=== PATIENT | male | born 1940 | race Caucasian/White ===

== ENCOUNTER 2017-01-03 17:45 | Inpatient (IN) | payer MEDICARE ==
--- NOTE | 2017-01-03 17:55 | NUR ---
Patient arrived from [facility] via EMS with two drivers, patient apparently had made the statement when staff went to put a gait belt around his waist and he said "Just put it around my neck and get it over with" Patient also was frustrated and angry and told staff to "Get away from me" and he was swinging his arms and if he would have made contact he would have hit someone. Patient can stand with assist, but he is stiff and unsteady with weakness. Patient is confused, he is oriented to himself, but he does not know where he is located. He did admit that he did probably say those things, but denies that he would kill himself and he does contract with me for a no self harm contract. He says he is sad and angry that he is not with his . Patient can answer some questions appropriately.
[2017-01-03 18:13] VITALS: BP 116/67; BMI 22.5
[2017-01-03] MEDS ORDERED: ASCORBIC ACID500 MG PO (18:34)
[2017-01-03] MEDS ORDERED: ACIDOPHILUS LAC1 CAP PO (18:36)
[2017-01-03] MEDS ORDERED: IPRATROPIUM BR42 MCG NASAL (18:38)
[2017-01-03] MEDS ORDERED: CALCIUM 500 +1 EAC3 PO (18:39)
[2017-01-03] MEDS ORDERED: CARBIDOPA-LEVO1 EAC2 PO (18:42)
[2017-01-03] MEDS ORDERED: GLUCOPHAGE500 MG PO (18:43)
[2017-01-03] MEDS ORDERED: VIC-FORTE CAPSUL1 MG PO (18:44)
[2017-01-03] MEDS ORDERED: CELEXA20 MG PO (18:45)
[2017-01-03] MEDS ORDERED: ARICEPT10 MG PO (18:46)
[2017-01-03] MEDS ORDERED: HUMULIN R100 U/ML SC (18:59)
--- NOTE | 2017-01-04 01:05 | NUR ---
B) recieved sitting outside the nurses station in a jean chair, alert and oriented to self, confused, calm and cooperative with staff, I) Administered perscribed medications, oriented to unit, R) Medication compliant, ambulates with assist, P) Continue plan of care, continue to monitor.
[2017-01-04 06:44] LABS: BASOPHILS 0.6 % (0.0-2.0); EOSINOPHILS 2.1 % (0-7); HEMATOCRIT 43.2 % (42.0-54.0); HEMOGLOBIN 14.7 g/dL (13.5-17.5); IMMATURE GRANULOCYTES 0.4 % (0-5); MCH 30.6 pg (26.0-34.0); MCV 89.8 fL (80.0-100.0); MONOCYTES 9.1 % (2-11); NEUTROPHILS 65.8 % (40-80); PLATELET COUNT 173 10x3/uL (130-400); RBC 4.81 10x6/uL (4.20-6.10); RDW 12.8 % (11.5-14.5); WBC 4.7 10x3/uL (4.8-10.8)
[2017-01-04 07:04] LABS: ALKALINE PHOSPHATASE 68 U/L (46-116); ALT (SGPT) 15 U/L (10-68); BILIRUBIN - TOTAL 0.56 mg/dL (0.2-1.3); CALC OSMOLALITY 282 mosm/kg (275-300); CALCIUM 8.6 mg/dL (8.5-10.1); CARBON DIOXIDE 27.1 mmol/L (21.0-32.0); CHLORIDE - SERUM 104 mmol/L (98-107); CHOL - HDL RATIO 4.3 ratio (2.3-4.9); CHOLESTEROL, TOTAL 167 mg/dL (0-200); CREATININE - SERUM 0.9 mg/dL (0.6-1.3); GLUCOSE 154 mg/dL (74-106); HDL CHOLESTEROL 39 mg/dL (32-96); LDL CHOLESTEROL 83 mg/dL (0-100); LDL-HDL RATIO 2.1 ratio (1.5-3.5); POTASSIUM - SERUM 3.6 mmol/L (3.5-5.1); PROTEIN - SERUM 6.1 g/dL (6.4-8.2); SODIUM 140 mmol/L (136-145); THYROID STIMULATING HORMONE 2.48 uIU/mL (0.36-3.74); TRIGLYCERIDE 228 mg/dL (30-200); UREA NITROGEN 15 mg/dL (7-18); eGFR NON AFRICAN AMERICAN 88 mL/min (90-120)
[2017-01-04 08:55] VITALS: BP 138/62
[2017-01-04 10:29] VITALS: Wt 86.9 kg
--- NOTE | 2017-01-04 13:10 | NUR ---
(B)RECEIVED PATIENT LAYING IN BED. ORIENTED TO SELF ONLY. THOUGHT HE WAS IN [place]. POOR INSIGHT INTO THE REASON FOR HOSPITALIZATION. INFORMED PATIENT THE REPORT WAS HE WAS HAVING SUICIDAL THOUGHTS WHICH PATIENT DENIES AND REPLIED "I HAD THOUGHTS MY RAN OFF WITHOUT ME." WHEN ASKED ABOUT THE AGGRESSIVE BEHAVIOR PATIENT CONFIRMS THE AGGRESSION RELATING "GOT AGGRESSIVE BECAUSE THEY TOOK MY AWAY FROM ME." THOUGHT CONTENT REVOLVES AROUND . SITS QUIETLY AND WATCHES OTHERS. (I)ADMINISTER MEDS AND MONITOR COMPLIANCE REORIENT NEEDED.(R)MED COMPLIANT. POOR REORIENTAION DUE TO IMPAIRED ABILITY TO RETAIN INFORMATION. (P)CONTINUE POC AND MAINTAIN FALL PRECAUTIONS.
[2017-01-04 19:30] VITALS: BP 98/60
--- NOTE | 2017-01-05 01:34 | NUR ---
Patient resting in dayroom. Calm and cooperative with medication. Oriented to person. Patient was reoriented to place, time and situation. Continue to monitor, continue plan of care.
[2017-01-05 07:21] LABS: RAPID PLASMA REAGIN Non Reactive (Non Reactive)
[2017-01-05 09:03] VITALS: BP 124/70
--- NOTE | 2017-01-05 11:50 | NUR ---
B.) Alert and oriented to self only, patient resistant and pushing nurse hand away during assessment, frown on face and tight trading manager on arm braclet while nurse trying to scan to check FSBS. I.) Administer medications and monitor compliance, redirect for inappropriate behavior and reorient. Monitor safety. R.) Compliant with medications this am, at this time patient is aggressive, frowning, tight trading manager on nurse hand and clothing when attempted to assess, asked where he was at " across the street at the" ( then mumbles ) yells to nurse "Can't you hear!", pushed patient to dining room table for lunch, patient grabs tray and attmepts to throw it, grab another patients tray, grabbing food off of it and poured out his and another patients boost. Attempts to redirect and speak with patient one on one regarding behavior...patient uncooperative and continues to reach for things, with strong trading manager on tech arm, redirected to day room away from other patients. Remains in jean chair with chair alarm in place. P.) Continue to monitor patient and maintain safety. Continue plan of care.
--- NOTE | 2017-01-05 13:24 | NUR ---
Patient with scanning vision, tremors of left hand, strong child caregiver on chair. Prn Haldo IM given for anxiety.
[2017-01-05 19:30] VITALS: BP 130/84
--- NOTE | 2017-01-05 21:31 | NUR ---
B) Recieved sitting in the day room in a jean chair, alert and oriented to self, calm and quiet, social with staff, B) Administered perscribed medications, I) Medication compliant, quiet and friendly, P) Continue plan of care, continue to monitor.
--- NOTE | 2017-01-06 07:54 | PSY ---
PATIENT NAME:CLAUDIA SMITH MEDICAL RECORD: [id number] : 44 LOCATION:[facility] ADMISSION DATE: 01/03/17 ACCOUNT: [id number] PSYCHIATRIC EVALUATION DATE OF EVALUATION: 01/04/17 Initial Psychiatric Workup IDENTIFYING DATA: This is the first prison admission for this 76-year-old white male. HISTORY OF PRESENT ILLNESS: This patient is a resident of [facility]. He was being assisted with physical therapy gait training at the snf yesterday when he told his therapist to simply put the belt around his neck and "get it over with." The patient had been exhibiting worsening depression evidently for sometime. He is now exhibiting delusional ideation as well. On interview today, the patient thinks that his is having an affair. He is showing fairly rapid deterioration according to history obtained from the . The patient has been arrested at [facility] for less than 3 months. He does have preexisting diagnosis of dementia. Because of deteriorating behavior and worsening cognition, the patient is admitted. PAST MEDICAL HISTORY: Relatively unremarkable. The patient does have a past history of diabetes, for which he takes insulin. The patient also has a previous history of Parkinson's. ALLERGIES: He has no known drug allergies. CURRENT MEDICATIONS: Include vitamin C, lactobacillus acidophilus, vitamin D and calcium supplements, Sinemet 25/100, 1.5 tabs twice a day, Glucophage 500 mg daily, Celexa 20 mg daily, Aricept 10 mg h.s. FAMILY HISTORY: Noncontributory. SOCIAL HISTORY: The patient does not have substance abuse issues. He is a snf resident. His is supportive. MENTAL STATUS: On exam, the patient is fairly pleasant. On exam, mood; however, is anxious. Affect is rather shallow. Speech is low in volume and somewhat terse. Thought content is positive for paranoid delusional ideation. The patient is oriented to person, but not as to place or time. Memory is impaired in all phases. 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 AXIS II: No diagnosis. AXIS III: Parkinson disease, history of diabetes. AXIS IV: Severe. AXIS V: 34. PLAN: 1. The patient is admitted for further medical and psychiatric workup. 2. Daily supportive therapy. 3. We will coordinate with referring agency regarding aftercare. TRANSINT:[id number] Voice Confirmation ID: [id number] DOCUMENT ID: [id number] IFEOMA RÍOS III, MD at 0754 CC: [id number] DICTATION DATE: 01/04/17 104 ASSISTANT MANAGER QUALITY MANAGEMENT: 01/04/17 1133 ADM IN [facility] [address] [place] [address]
[2017-01-06 10:07] VITALS: BP 103/68
[2017-01-06 11:46] LABS: APPEARANCE CLEAR (CLEAR); BILIRUBIN NEGATIVE (NEGATIVE); COLOR YELLOW (YELLOW); GLUCOSE NEGATIVE (NEGATIVE); KETONE NEGATIVE (NEGATIVE); LEUKOCYTE ESTERASE TRACE (NEGATIVE); NITRITE NEGATIVE (NEGATIVE); PROTEIN NEGATIVE (NEGATIVE); SPECIFIC GRAVITY 1.015 (1.005-1.020); UROBILINOGEN NORMAL (NORMAL)
[2017-01-06 11:48] LABS: BACTERIA FEW /hpf (NONE SEEN); CALCIUM OXALATE CRYSTALS 0-5 /hpf (NONE SEEN); EPITHELIAL CELLS 0-5 /hpf (0-5); MUCUS <1+ /lpf (NONE SEEN); RED CELLS - URINE 0-5 /hpf (0-5); WHITE CELLS - URINE 0-5 /hpf (0-5)
--- NOTE | 2017-01-06 14:38 | NUR ---
TREMORS NOTED TO LEFT HAND. PT IS VERY ANXIOUS WITH SCANNING VISION AND POOR EYE CONTACT. ENCOURAGED PT TO COMMUNICATE FEELINGS BUT PT ONLY ANSWERS QUESTIONS. ORIENTED TO PERSON ONLY. REORIENTED FREQUENTLY WITH NO EVIDENCE OF RETAINING. MED COMPLIANT. PTIS A TOTAL ASSIST AND REQUIRES TWO STAFF MEMBERS TO ASSIST WITH ADLS AND INCONTINENT CARE. NO AGGRESSION NOTED. DENIES SI BUT SIGNS OF DEPRESSION PRESENT. WILL CONTINUE TO MONITOR AND CONTINUE WITH PLAN OF CARE. FALL PRECAUTIONS MAINTAINED.
[2017-01-06 19:30] VITALS: BP 99/56
--- NOTE | 2017-01-06 20:07 | NUR ---
RECEIVED IN DAYROOM. SETTING IN RECLINING CHAIR. CONFUSED. ORIENTED TO SELF ONLY. CALM AND COOPERATIVE WITH CARE AND ASSESSMENT. NO SIGNS OF AGGRESSION. TWO PERSON TRANSFERE TO WHEELCHAIR. REDIRECT AND REORIENT NEEDED. CONTINUES TO SET QUIETLY IN RECLINER. CONTINUE PLAN OF CARE
[2017-01-07 09:09] LABS: VITAMIN D 25 HYDROXY 23.3 ng/mL (30.0-100.0)
[2017-01-07 10:31] VITALS: BP 117/75
--- NOTE | 2017-01-07 17:02 | NUR ---
RECEIVED THIS AM SITTING IN RECLINER IN HALLWAY AT NURSES STATION.SITS VERY QUIETLY OBSERVING PEERS AND STAFF.COMPLIANT WITH MEDS.COOPERATIVE WITH STAFF.IS TOTAL CARE,REQUIRES ASSIST OF 2 TO PROVIDE ADL'S.WILL CONTINUE WITH PLAN OF CARE,MONITOR FOR CHANGES AND SAFETY.
[2017-01-07 20:00] VITALS: BP 113/70
--- NOTE | 2017-01-07 20:05 | NUR ---
RECEIVED IN DAYROOM SETTING IN RECLINER WATCHING TV AT TIMES. ISOLATED FROM PEERS. NOT SOCIALIZING. NO SIGNS OF AGGRESSION. ORIENTED TO SELF ONLY. REDIRECT AND REORIENT NEEDED. CONTINUES TO REST IN RECLINER WITH EYES OPEN. CONTINUE PLAN OF CARE
[2017-01-08 08:28] VITALS: BP 116/72
--- NOTE | 2017-01-08 10:27 | NUR ---
Nutrition Follow Up: Chart reviewed. Pt is eating 71% meal avg on a Diabetic Cardiac diet with Farner Thick Liquids. +BM 01/04/17. Wt gain of 26# since admit?? Labs noted - Glucose elevated. Meds noted including Humulin, Metformin. Pt with good po intake at this time. Rec continue current diet. Will continue to provide selective menus and honor food preferences. RD following.
--- NOTE | 2017-01-08 13:04 | NUR ---
B.) Alert and oriented to self has no insight to place and reason for hospitalization. Smiles and is very pleasant and cooperative with care. I.) Administer medications, redirect and reorient as need. Encourage group participation and monitor safety. Assist patient with activities and meals. R.) Compliant with medications, calm and cooperative with unit milieu with no aggression. Has attempted socialization with others, smiles often. Patient able to feed self meals with no tremors noted to left hand. Chair alarm in place and functioning properly. P.) Continue plan of care.
[2017-01-08 19:31] VITALS: BP 116/79
--- NOTE | 2017-01-08 23:25 | NUR ---
PATIENT IN CHAIR IN DAYROOM, ORIENTED TO SELF ONLY. THOUGHT HE WAS IN A "MOVIE HOUSE". PATIENT REORIENTED, KEPT ASKING TO SEE HIS , WHOM HE THOUGHT HE COULD SEE OUTSIDE. PATIENT KEPT TRYING TO STAND WITHOUT ASSIST, WHEN NURSE DEVON WENT TO ASSIST HIM, PATIENT PUSHED HIM. NURSE DEVON REDIRECTED PATIENT, AFTERWARDS PATIENT WAS CALM AND COOPERATIVE. CONTINUE TO MONITOR, CONTINUE PLAN OF CARE.
[2017-01-09 08:02] VITALS: BP 124/84
--- NOTE | 2017-01-09 14:28 | NUR ---
RECEIVED SITTING IN RECLINER IN DAYROOM.ALERT,CALM,AND COOPERATIVE.IS ORIENTED TO SELF ONLY.TALKS OFTEN ABOUT HIS BEING A TAG MARKER,BUT IS NOT HEARD SPEAKING OF OTHER THINGS.HAS NO INSITE TO WHERE HE IS OR WHY.WALKS WITH WALKER AND ASSIST OF ONE WITH UNSTEADY GAIT,AT TIMES WILL PUT ONE FOOT IN FRONT OF OTHER FOOT,TOUCHING TOE OF OPPOSITE FOOT.WILL CONTINUE WITH PLAN OF CARE,MONITOR FOR CHANGES AND SAFETY.
--- NOTE | 2017-01-09 21:55 | NUR ---
PATIENT IN DAYROOM IN RECLINER HOLDING ONE SHOE, HAVING LOOSE ASSOCIATIONS, UNABLE TO FOLLOW QUESTIONS. PATIENT WAS REORIENTED. NON-AGRESSIVE, BUT TEARFUL. PATIENT WAS REDIRECTED. COOPERATIVE WITH MEDICATION. CONTINUE TO MONITOR, CONTINUE PLAN OF CARE.
[2017-01-10 09:05] VITALS: BP 125/78
--- NOTE | 2017-01-10 12:47 | NUR ---
(B)RECEIVED PATIENT SITTING IN A CHAIR AT THE NURSE'S STATION. ORIENTED TO SELF AND HOSPITAL. INTERACTS WHEN APPROACHED. PREOCCUPIED WITH THOUGHTS OF AND TALKS OF HER FREQUENTLY. (I)ADMINISTER MEDS AND MONTIOR COMPLIANCE. REORIENT WITH REALITY BASED INFORMATION WHEN SPEAKING OF AND BELIEVING SHE IS PRESENT. (R)MED COMPLIANT. POOR REORIENTAION AND REDIRECTION DUE TO IMPAIRED ABILITY TO SEPARATE REALITY FROM FANTASY. COOPERATIVE WITH UNIT MIL. (P)CONTINUE POC AND MAINTAIN FALL PRECAUTIONS.
--- NOTE | 2017-01-10 13:22 | PN ---
PATIENT:CLAUDIA SMITH MEDICAL RECORD: [id number] LOCATION:[facility] ADMISSION DATE: 01/03/17 PROGRESS NOTE DATE OF SERVICE: 01/09/2017 SUBJECTIVE: The patient's case was discussed with staff. He has no new complaint. OBJECTIVE: The patient is in good behavioral control with limited insight about his condition. He tolerates his medicines well. ASSESSMENT: No change in diagnoses. PLAN: Current medicines and therapies have been reviewed and will be maintained. Long-term prognosis is guarded. The patient has no thoughts of harming himself today. TRANSINT:[id number] Voice Confirmation ID: [id number] DOCUMENT ID: [id number] GARLAND SPRAGUE MD at 1322 CC: [id number] DICTATION DATE: 01/09/17 165 LEAD JAVASCRIPT DEVELOPER: 01/09/172051 ADM IN [place] [id number] [place] [id number]
[2017-01-10 19:30] VITALS: BP 107/71
--- NOTE | 2017-01-11 02:41 | NUR ---
B) Recieved sitting in a jean chair in the day room, alert and oriented to self, calm and quiet, watching TV, I) Administered perscribed medications, redirected as needed, oriented to unit, R) Medication compliant, cooperative with staff, transfers with assist, P) Continue plan of care, continue to monitor.
[2017-01-11 08:18] VITALS: BP 120/77
--- NOTE | 2017-01-11 08:18 | PN ---
PATIENT:CLAUDIA SMITH MEDICAL RECORD: [id number] LOCATION:[facility] ADMISSION DATE: 01/03/17 PROGRESS NOTE DATE OF SERVICE: 01/10/2017 SUBJECTIVE: The patient's case was discussed with staff. He has no new complaint. OBJECTIVE: The patient is in good behavioral control with limited insight about his condition. He tolerates his medicines well. ASSESSMENT: No change in diagnoses. PLAN: Supportive and educational interventions were made. Long-term prognosis is guarded. TRANSINT:[id number] Voice Confirmation ID: [id number] DOCUMENT ID: [id number] GARLAND SPRAGUE MD at 0818 CC: [id number] DICTATION DATE: 01/10/17 1319 EXHAUSTER ENGINEER: 01/10/17 1655 ADM IN [place] [id number] [place] [address]
--- NOTE | 2017-01-11 10:00 | NUR ---
B.) Alert and oriented to name and place, states reason for being here as " a little of everything I think concerning about hurting someone." Denies any suicidal ideations, contracted for safety. I.) Administer medications and monitor compliance. Redirect for any inappropriate behavior. Monitor for safety. R.) Compliant with medications, pleasant and cooperative. Smiling and social today. Contracted for safety with no suicidal ideations. No aggression P.) Plan for discharge today back to [facility].
[2017-01-11] MEDS ORDERED: SEROQUEL25 MG PO (11:15)
[2017-01-11] MEDS ORDERED: COMTAN200 MG PO (11:15)
[2017-01-11] MEDS ORDERED: SINEMET 25-1001 EACH PO (11:15)
[2017-01-11] MEDS ORDERED: COLACE100 MG PO (11:16)
[2017-01-11] MEDS ORDERED: GLUCOPHAGE500 MG PO (11:17)
[2017-01-11] MEDS ORDERED: VITAMIN D5000 UNIT PO (11:18)
--- NOTE | 2017-01-11 12:48 | NUR ---
Contacted patient spouse Neena Craig, informed that patient will be returning to [facility] today, facility will pick him up for transport at 1400. Verbalized understanding with no further concerns voiced.
--- NOTE | 2017-01-11 14:00 | NUR ---
Discharge back to [facility], no incident. Belongings released to patient. Wedding band placed ayleen on per patient.
--- NOTE | 2017-01-15 10:22 | PN ---
PATIENT:CLAUDIA SMITH MEDICAL RECORD: [id number] LOCATION:[facility] ADMISSION DATE: 01/03/17 PROGRESS NOTE DATE OF SERVICE: 01/07/2017 SUBJECTIVE: No new complaint noted. OBJECTIVE: The patient was aggressive with staff over the weekend before visit with his . He had become aggressive with both staff and with other patients and had to receive a p.r.n. On exam today, the patient's mood is more or less euthymic. Affect is constricted. Speech is somewhat terse. Content of thought is negative for overt psychosis. Sensorium shows no change. ASSESSMENT: No change in diagnosis. PLAN: 1. Adjust medications as indicated, control aggressive behavior. 2. Continue supportive therapy. TRANSINT:[id number] Voice Confirmation ID: [id number] DOCUMENT ID: [id number] IFEOMA RÍOS III, MD at 1022 CC: [id number] DICTATION DATE: 01/07/17 1121 BED SPRING MAKER: 01/07/17 1218 DIS IN 01/11/17 [place] [id number] [place] [address]
--- NOTE | 2017-01-16 06:46 | DS ---
PATIENT:CLAUDIA SMITH :44 MEDICAL RECORD: [id number] DISCHARGE SUMMARY ADMISSION DATE: 01/03/17 DISCHARGE DATE: 01/11/17 DATE OF ADMISSION: 01/03/2017 DATE OF DISCHARGE: 01/11/2017 HISTORY OF PRESENT ILLNESS: A 76-year-old white male who is a resident of [facility]. The patient had been exhibiting suicidal ideation and worsening dementia. He had exhibited progressive depression for some time and also some paranoid delusional ideation. For further details, please see previously dictated history. COURSE IN THE HOSPITAL: The patient was seen in consultation by Dr. Zhong. He had multiple medical problems including Parkinson disease, type 2 diabetes, hyperlipidemia, hypertension, osteoarthritis and allergic rhinitis. From a medication standpoint, the patient was treated with oral agents for his diabetes including Glucophage. He was also kept on p.r.n. sliding scale insulin. The patient was also maintained on routine doses of Comtan for his Parkinson disease as well as Sinemet. Other nonpsychiatric medications included Floranex and vitamin C supplements. The patient was treated with Seroquel 25 mg b.i.d. for his delusional ideation. He was also maintained on Celexa 20 mg daily and Aricept 10 mg at bedtime. By the time of discharge, the patient was stable enough to return to the [facility] environment. 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 AXIS II: No diagnosis. AXIS III: Parkinson disease and type 2 diabetes. AXIS IV: Moderate. AXIS V: 38. PLAN: 1. The patient is discharged on current medication. 2. Diet and activities as tolerated. 3. Follow up through primary care physician. TRANSINT:[id number] Voice Confirmation ID: [id number] DOCUMENT ID: [id number] IFEOMA RÍOS III, MD at 0646 CC: [id number] DICTATION DATE: 01/15/17 1114 PSYCHIATRIC SOCIAL WORKER SUPERVISOR: 01/16/17 0126 DIS IN 01/11/[address] [address]
== END 2017-01-11 14:00 | DRG 57 ==
LOC: D.PSYCH 17:45
PROVIDERS: ADMIT Psychiatry & Neurology Psychiatry
DX: G30.9 Alzheimer's disease, unspecified (principal); F02.81 Dementia in other diseases classified elsewhere, unspecified severity, with behavioral disturbance; R45.851 Suicidal ideations; G20 Parkinson's disease; F32.9 Major depressive disorder, single episode, unspecified; E55.9 Vitamin D deficiency, unspecified; E11.9 Type 2 diabetes mellitus without complications; E78.5 Hyperlipidemia, unspecified; I10 Essential (primary) hypertension; L85.3 Xerosis cutis; R26.81 Unsteadiness on feet; Z91.81 History of falling; H26.9 Unspecified cataract; J30.9 Allergic rhinitis, unspecified; R32 Unspecified urinary incontinence

== ENCOUNTER 2017-01-31 09:22 | Inpatient (IN) | payer MEDICARE ==
[~2017-01-31] VITALS: Ht 182.9 cm; Wt 85.1 kg
[~2017-01-31 09:22] MED LIST: ACIDOPHILUS LAC1 CAP PO; ARICEPT10 MG PO; ASCORBIC ACID500 MG PO; CALCIUM 500 +1 EAC3 PO; CARBIDOPA-LEVO1 EAC2 PO; CELEXA20 MG PO; COLACE100 MG PO; COMTAN200 MG PO; GLUCOPHAGE500 MG PO; HUMULIN R100 U/ML SC; IPRATROPIUM BR42 MCG NASAL; SEROQUEL25 MG PO; SINEMET 25-1001 EACH PO; VIC-FORTE CAPSUL1 MG PO; VITAMIN D5000 UNIT PO
[2017-01-31 10:00] VITALS: BP 121/87
[2017-01-31] MEDS ORDERED: ACETAMINOPHEN325 MG PO (14:27)
[2017-01-31] MEDS ORDERED: ATIVAN0.5 MG PO (14:35)
--- NOTE | 2017-01-31 14:53 | NUR ---
PT WAS ADMITTED FROM ER AFTER BEING BROUGHT TO THE HOSPITAL FROM [facility]. IT WAS REPORTED THAT THE PT HAD BECOME SUICIDAL AND ASKING STAFF TO KILL HIM. IT WAS REPORTED THAT HE SAID, "I DON'T WANT TO LIVE LIKE THIS ANYMORE". SPOUSE CALLED AND VERBAL CONSENT GIVEN FOR PT TO BE ADMITTED TO [facility]. PT IS AGREEABLE TO BEING ADMITTED. FULL CODE NOTED. PT IS ORIENTED TO PERSON ONLY. REDIRECTION DONE NEEDED. NO AGGRESSION NOTED. FALL PRECAUTIONS INITIATED. WILL CONTINUE TO MONITOR.
[2017-01-31 15:40] LABS: BASOPHILS 0.3 % (0.0-2.0); EOSINOPHILS 0.5 % (0-7); HEMATOCRIT 46.5 % (42.0-54.0); IMMATURE GRANULOCYTES 0.3 % (0-5); LYMPHOCYTES 13.9 % (15-50); MCH 30.7 pg (26.0-34.0); MCHC 34.4 g/dL (31.0-37.0); MCV 89.1 fL (80.0-100.0); MONOCYTES 7.1 % (2-11); NEUTROPHILS 77.9 % (40-80); PLATELET COUNT 204 10x3/uL (130-400); RBC 5.22 10x6/uL (4.20-6.10); RDW 12.9 % (11.5-14.5); WBC 7.9 10x3/uL (4.8-10.8)
[2017-01-31 16:02] LABS: HEMOGLOBIN A1C 6.5 % (4.8-6.0)
[2017-01-31 16:16] LABS: ALBUMIN 3.6 g/dL (3.4-5.0); ALKALINE PHOSPHATASE 90 U/L (46-116); ALT (SGPT) 53 U/L (10-68); CALC OSMOLALITY 288 mosm/kg (275-300); CALCIUM 9.2 mg/dL (8.5-10.1); CARBON DIOXIDE 29.3 mmol/L (21.0-32.0); CHLORIDE - SERUM 104 mmol/L (98-107); CHOL - HDL RATIO 4.8 ratio (2.3-4.9); CHOLESTEROL, TOTAL 226 mg/dL (0-200); GLUCOSE 188 mg/dL (74-106); HDL CHOLESTEROL 47 mg/dL (32-96); LDL CHOLESTEROL 150 mg/dL (0-100); LDL-HDL RATIO 3.2 ratio (1.5-3.5); POTASSIUM - SERUM 4.1 mmol/L (3.5-5.1); PROTEIN - SERUM 7.1 g/dL (6.4-8.2); SODIUM 142 mmol/L (136-145); THYROID STIMULATING HORMONE 2.02 uIU/mL (0.36-3.74); TRIGLYCERIDE 147 mg/dL (30-200); UREA NITROGEN 16 mg/dL (7-18); eGFR NON AFRICAN AMERICAN 78 mL/min (90-120)
[2017-01-31 16:37] VITALS: BP 121/87
[2017-01-31 20:25] VITALS: BP 121/73
[2017-02-01 06:17] LABS: RAPID PLASMA REAGIN Non Reactive (Non Reactive)
[2017-02-01 08:00] VITALS: BP 164/70
[2017-02-01 09:18] LABS: VITAMIN D 25 HYDROXY 33.9 ng/mL (30.0-100.0)
[2017-02-01 10:20] LABS: FOLATE (FOLIC ACID) - SERUM 13.7 ng/mL (>3.0)
[2017-02-01 11:08] LABS: APPEARANCE HAZY (CLEAR); BILIRUBIN NEGATIVE (NEGATIVE); COLOR YELLOW (YELLOW); GLUCOSE 50 mg/dL (NEGATIVE); KETONE NEGATIVE (NEGATIVE); LEUKOCYTE ESTERASE TRACE (NEGATIVE); NITRITE NEGATIVE (NEGATIVE); PROTEIN TRACE mg/dL (NEGATIVE); UROBILINOGEN NORMAL (NORMAL)
[2017-02-01 11:09] LABS: BACTERIA FEW /hpf (NONE SEEN); EPITHELIAL CELLS OCC /hpf (0-5); RED CELLS - URINE 0-5 /hpf (0-5); WHITE CELLS - URINE OCC /hpf (0-5)
[2017-02-01 14:45] VITALS: Ht 182.9 cm; Wt 85.1 kg
--- NOTE | 2017-02-01 16:06 | NUR ---
B) PATIENT GETTING AGITATED AND ANXIOUS, HE REFUSED HIS PO ATIVAN. PATIENT SLUMPING OVER IN CHAIR, STAFF ATTEMPTED TO HELP HIM AND HE IS TRYING TO GRAB AT THEM AND SWING AT THEM. PATIENT IS ABLE TO STAND AT TIMES WITH ASSIST AT OTHER TIMES HE IS WEIGHT. HE DID AMBULATE IN AM WITH PT. I) PROVIDED ATIVAN 0.5 MG IM IN RIGHT DELTOID. R) PATIENT REFUSED TO HAVE FSBS TAKEN, HE IS IRRITABLE AND HE IS SAYING NUMBERS AND NONSENSICAL, DID GRAB ONTO MY JACKET AND DIDN'T LET GO UNTIL STAFF HAD TO ASSIST HIS HANDS OFF. P) CONTINUE PLAN OF CARE.
--- NOTE | 2017-02-01 16:21 | NUR ---
Patient has refused his 1500 ativan, will provide 0.5 mg IM ATIVAN
[2017-02-01 19:30] VITALS: BP 97/66
--- NOTE | 2017-02-01 23:33 | NUR ---
Patient in recliner in dayroom sleeping. Patient denies suicidal or thoughts of self harm at this time. Complaint with medication. Continue to monitor, continue plan of care.
[2017-02-02 07:53] VITALS: BP 117/78
--- NOTE | 2017-02-02 14:34 | NUR ---
(B)RECEIVED PATIENT SITTING IN A CHAIR AT THE NURSES STATION. ORIENTED TO SELF, PLACE AND DAY. UNABLE TO EXPRESS THE REASON FOR HOSPITALIZATION STATING "I REALLY GOT TO INVOLVED WITH" PAUSED AND COULD NOT COMPLETE THOUGHT. MUMBLES TO SELF. VISUAL HALLUCINATIONS AEB REACHING DOWN TO FLOOR IF PICKING SOMETHING UP. LAUGHS TO SELF IF HEARING SOMETHING FUNNY. CALM AND COOPERATIVE HOWEVER HAS DIFFICULTY COMPREHENDING AND PROCESSING CAUSING DIFFICULTY FOLLOWING INSTRUCTIONS. (I)ADMINISTER MEDS AND MONITOR COMPLIANCE. REORIENT NEEDED. (R)MED COMPLIANT. POOR REORIENTATION DUE TO IMPAIRED ABILTY TO COMPREHEND, PROCESS AND MAINTAIN FALL PRECAUTIONS. (P)CONTINUE POC AND MAINTAIN FALL PRECAUTIONS.
[2017-02-02 19:30] VITALS: BP 122/75
--- NOTE | 2017-02-03 03:35 | NUR ---
Patient sleeping in dayroom. Has a hard time communicating, speaking very slow in response to conversation or direction. Patient stays slouched in chair. Will not participate in conversation. compliant with medication. No suicidal ideation, or self harm at this time. continue to monitor, continue plan of care.
[2017-02-03 10:16] VITALS: BP 116/61
--- NOTE | 2017-02-03 19:23 | NUR ---
ORIENTEDTO SELF AND PLACE.STATED "IM AT [facility] [employer]' THEN CORRECTED HIMSELF.KNOWS HE IS IN HOSPITAL BUT DOES NOT KNOW WHY.IS COMPLIANT WITH MEDS ,QUITE AND DOES NOT SOCIALIZE TODAY WITH PEERS.HAS TO BE REMINED REPEATEDLY TO NOT GET OUT OF CHAIR DUE TO UNSTEADY GAIT.WILL CONTINUE WITH PLAN OF CARE,MONITOR FOR CHANGES AND SAFETY.
[2017-02-03 19:30] VITALS: BP 127/79
--- NOTE | 2017-02-03 21:05 | NUR ---
RECEIVED IN DAYROOM. SITTING AT TABLE WITH STAFF. MOVING PAPERS AROUND. CONFUSED. NO THOUGHT OF SELF HARM STATED. CALM AND COOPERATIVE WITH CARE AND ASSESSMENT. ENCOURAGE TO EXPRESS NEEDS. PM MEDS GIVEN ORDERED. CONTINUES TO SIT AT TABLE. CONTINUE PLAN OF CARE
--- NOTE | 2017-02-04 10:26 | PSY ---
PATIENT NAME:CLAUDIA DOMINGUEZ MEDICAL RECORD: [id number] : 44 LOCATION:[facility] ADMISSION DATE: 01/31/17 ACCOUNT: [id number] PSYCHIATRIC EVALUATION DATE OF EVALUATION: 01/31/17 IDENTIFYING DATA: This is the second recent [facility] admission for this 76-year-old white male. HISTORY OF PRESENT ILLNESS: This patient was just admitted to [facility] between January 03 and January 11 of this year. At that time, he had made suicidal statements to a physical therapist. He had also been exhibiting delusional ideation. He thought that his was having an affair with someone. He had continued to show rapid deterioration in terms of his thought processes and his intellectual abilities including memory and judgment and perception. He was treated over the course of an approximately 1 week with combination of Seroquel 25 mg twice a day, Celexa 20 mg daily and Aricept 10 mg daily. The patient did quite well on this regimen of treatment and was discharged back to the [facility] in stable condition. However, today [facility] notified us that the patient had again made suicidal statements. In order to ensure patient's safety the patient was again transported to [facility]. PAST MEDICAL HISTORY: The patient has a history of Parkinson's disease as well as type 2 diabetes. He does have gait impairment. FAMILY HISTORY: Noncontributory. ALLERGIES: None listed. SOCIAL HISTORY: The patient is , his is supportive. He is a [facility] resident. He does not have substance abuse issues. MEDICATION: At the time of discharge back to the [facility] included the above-mentioned Seroquel, Aricept and Celexa as well as Floranex, vitamin C supplements, Glucophage and Comtan for Parkinson disease and also Sinemet. MENTAL STATUS: On exam, the patient responds fairly well to the examiner. He is quite confused. He cannot recall why he has been sent to the hospital and does not know when he actually got here. He asked the examiner "Am I sick." His mood is fairly pleasant and euthymic. Affect is reasonably bland. Speech shows a great deal of latency. Content of thought at the time of examination was negative for suicidal ideation. The patient continues to show some moderate delusional ideation. On sensorium testing, the patient is oriented only to person. He shows impairment for remote, intermediate, and short-term recall as well as concentration. Insight and judgment are very poor. 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 AXIS II: No diagnosis. AXIS III: Parkinson disease and type 2 diabetes. AXIS IV: Severe. AXIS V: 36. PLAN: 1. The patient is admitted for further evaluation from a psychiatric and medical standpoint. 2. Daily supportive therapy. 3. We will coordinate with referring agency regarding aftercare. TRANSINT:[id number] Voice Confirmation ID: [id number] DOCUMENT ID: [id number] IFEOMA RÍOS III, MD at 1026 CC: [id number] DICTATION DATE: 01/31/17 1042 MANAGER NET: 01/31/17 1144 ADM IN [place] [id number] [place] [id number]
[2017-02-04 11:16] VITALS: BP 116/74
--- NOTE | 2017-02-04 14:16 | PN ---
PATIENT:CLAUDIA DOMINGUEZ MEDICAL RECORD: [id number] LOCATION:[facility] ADMISSION DATE: 01/31/17 PROGRESS NOTE DATE OF SERVICE: 02/01/2017 SUBJECTIVE: The patient's case was discussed with staff. He has no new complaint. OBJECTIVE: The patient is severely impaired cognitively. He makes no statements about wanting to kill himself today. He has very limited insight about his situation. ASSESSMENT: No change in diagnoses. PLAN: Current medicines have been reviewed and will be maintained. Long-term prognosis is guarded. TRANSINT:[id number] Voice Confirmation ID: [id number] DOCUMENT ID: [id number] GARLAND SPRAGUE MD at 1416 CC: [id number] DICTATION DATE: 02/01/17 1503 STOVE FITTER: 02/01/172037 ADM IN [place] [id number] [place] [address]
--- NOTE | 2017-02-04 18:18 | NUR ---
RECEIVED PATIENT THIS AM, ALERT AND ORIENTED TO SELF ONLY, STATES HE IS " AT THE LABORATORY TO LOOK AT SOMEONES FOOT." NO EVIDENCE OF REORIENTATION. DIFFICULTY WITH DIRECTIONS AND REDIRECTION. PATIENT SITS IN CHAIR AND LEANS FORMWARD, ASSISTED TO YAMILETH CHAIR, PATIENT THEN ATTEMPTS TO BECOME COMBATIVE WITH STAFF, ABLE TO POSITION WITH CHAIR ALARM IN PLACE. ROUTINE KLONIPIN WAS SCHEDULED AT THAT TIME. MEDICATION EFFECTIVE, SAT QUIETLY WITHOUT ATTMEPTS OF COMBATIVENESS. ASSISTED WITH SUPPER. SAFETY MAINTAINED. CONTINUE WITH PLAN OF CARE.
[2017-02-04 19:42] VITALS: BP 120/72
--- NOTE | 2017-02-04 21:31 | PN ---
PATIENT:CLAUDIA DOMINGUEZ MEDICAL RECORD: [id number] LOCATION:[facility] ADMISSION DATE: 01/31/17 PROGRESS NOTE DATE OF SERVICE: 02/04/2017 SUBJECTIVE: No new complaint. OBJECTIVE: The patient continues to have episodes of combativeness during activities of daily living when assistance is being provided. He also continues to give evidence of some visual hallucinosis. He occasionally attempts to pick objects off the floor when nothing is actually there. He has leaned over far enough to almost fall out of his wheelchair, but staff has been present on each occasion to prevent this from happening and this may be pertinent in the reports we received from the [facility]. On exam, the patient is moderately responsive. His mood is euthymic. Affect is very constricted. Speech is terse. Content of thought as noted above. Sensorium shows no change. ASSESSMENT: No change in diagnosis. PLAN: 1. For now, we will continue current medication regimen. 2. Continue supportive therapy. TRANSINT:[id number] Voice Confirmation ID: [id number] DOCUMENT ID: [id number] IFEOMA RÍOS III, MD at 2131 CC: [id number] DICTATION DATE: 02/04/17 112 REROLLER HAND: 02/04/172045 ADM IN [place] [id number] [place] [address]
--- NOTE | 2017-02-05 02:26 | NUR ---
B) Recieved sitting in a chair in the day room, alert and oriented to self, no SI this shift, calm and cooperative this shift, I) Administered perscribed medications, redirected as needed, R) Medication compliant, resting now quietly, P) Continue plan of care, continue to monitor.
[2017-02-05 08:00] VITALS: BP 137/71
--- NOTE | 2017-02-05 13:06 | NUR ---
Nutrition Follow Up: Chart reviewed. Pt is eating 60% meal avg on a diabetic mechanical soft diet with nectar thick liquids. +BM 02/04/17. Labs noted. Meds noted including Metformin, Humulin. Pt with fair po intake at this time. Rec continue current diet. RD following.
--- NOTE | 2017-02-05 15:50 | NUR ---
(B)RECEIVED PATIENT SITTING IN A CHAIR AT THE NURSES STATION. ORIENTED TO SELF ONLY. POOR INSIGHT INTO THE REASON FOR HOSPITALIZATION. SOCIALLY WITHDRAWN. CALM AND COOPERATIVE. (I)ADMINISTER MEDS AND MONITOR COMPLIANCE. REORIENT NEEDED. (R)MED COMPLIANT. POOR REORIENTATION DUE TO IMPAIRED ABILITY TO RETAIN INFORMATION. COOPERATIVE WITH UNIT MILEU. (P)CONTINUE POC AND MAINTAIN FALL PRECAUTIONS.
--- NOTE | 2017-02-05 19:50 | NUR ---
RECEIVED IN DAYROOM. SITTING IN RECLINING CHAIR WATCHING TV. NOT SOCIALIZING WITH PEERS. NO SUICIALE STATEMENTS MADE THIS PM. NOT TRYING TO FALL OUT OF CHAIR. ENCOURAGE TO EXPRESS NEEDS. CONTINUE PLAN OF CARE
[2017-02-05 20:13] VITALS: BP 109/49
--- NOTE | 2017-02-05 22:00 | NUR ---
RESISTANT TO CARE. SQUEEZING STAFFS HANDS/ARMS. ENCOURAGE MED COMPLIANCE. REFUSES TO TAKE PM MEDICATIONS. REDIRECT AND REORIENT NEEDED.
[2017-02-06 09:50] VITALS: BP 122/75
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
--- NOTE | 2017-02-06 11:30 | NUR ---
Pt. refused FSBS x three attempts.
--- NOTE | 2017-02-06 16:35 | NUR ---
B) Sitting in recliner, resting quietly, eyes closed, arouses to verbal stimuli. Denies pain, I) Admin meds as ordered, provide group activity as directed. R) Uncookperative with meds as times, often required multiple attempts before pt agrees to take meds. P) Cont plan of care including meds and group therapy until discharge home.
[2017-02-06 19:29] VITALS: BP 98/61
--- NOTE | 2017-02-07 00:33 | NUR ---
PATIENT IN BED ASLEEP, WAKES EASILY, COMPLIANT WITH MEDICATION. UNABLE TO UNDERSTAND WHAT HE IS SAYING, SOMEWHAT LETHARGIC. ORIENTED TO SELF, BUT UNABLE TO ASSESS, PLACE, TIME AND SITUATION. PATIENTS SPEECH IS GARBLED. PATIENT REORIENTED TO PLACE, TIME AND SITUATION. BED LOW, BED RAILS UP X2, CONTINUE TO MONITOR CONTINUE PLAN OF CARE.
[2017-02-07 08:30] VITALS: BP 107/69
--- NOTE | 2017-02-07 10:46 | PN ---
PATIENT:CLAUDIA DOMINGUEZ MEDICAL RECORD: [id number] LOCATION:[facility] ADMISSION DATE: 01/31/17 PROGRESS NOTE DATE OF SERVICE: 02/06/2017 SUBJECTIVE: The patient states that he needs to be protected because Satan has caused the people working here to try to kill him. OBJECTIVE: The patient is exhibiting worsening agitation and obvious overt psychotic symptoms. He continues to have apparent visual hallucinations. He has extensive paranoid and jew delusions that are evident in the speech. Mood during the interview is anxious. Affect is shallow and brittle. Sensorium is unchanged. ASSESSMENT: No change in diagnosis. PLAN: 1. We will discontinue Risperdal and begin Zyprexa 2.5 mg daily. 2. Continue other medications. 3. Continue close observation and supportive therapy. TRANSINT:[id number] Voice Confirmation ID: [id number] DOCUMENT ID: [id number] IFEOMA RÍOS III, MD at 1046 CC: [id number] DICTATION DATE: 02/06/17 1141 GENERAL DUTY NURSE: 02/06/17 1704 ADM IN [facility] [address] [place] [address]
--- NOTE | 2017-02-07 15:45 | NUR ---
PATIENT IS DROWSY. ATIVAN PO HELD DUE TO SEDATED STATE.
--- NOTE | 2017-02-07 16:11 | NUR ---
(B)RECEIVED PATIENT LAYING IN BED. DRESSED AND ASSISTED TO CHAIR. ORIENTED TO SELF ONLY. SMILES AT STAFF WHEN TALKING TO HIM. ANSWERS ARE NOT CONGRUENT WITH QUESTIONS. SLEEPING ON AND OFF TODAY. MUMBLES TO SELF. DROWSEY TODAY BUT AROUSES FOR SHORT PERIODS OF TIME. STOOD WITH PHYSICAL THERAPY TODAY. (I)ADMINSITER MEDS AND MONITOR COMPLIANCE. REORIENT NEEDED. (R)MED COMPLIANT. POOR REORIENTATION. DOES NOT APPEAR TO COMPREHEND OR PROCESS INFORMATION. REMAINS SOCIALLY WITHDRAWN. COOPERATIVE WITH REQUEST. (P)CONTINUE POC AND MAINTAIN FALL PRECAUTIONS.
[2017-02-07 21:00] VITALS: BP 127/69
--- NOTE | 2017-02-08 04:01 | NUR ---
PATIENT IN DAYROOM, DROOLING ON TABLE, LETHARGIC UNABLE TO SIT UP. MUMBLES UNABLE TO UNDERSTAND. WITHHELD ATIVAN. CONTINUE TO MONITOR
--- NOTE | 2017-02-08 06:28 | PN ---
PATIENT:CLAUDIA DOMINGUEZ MEDICAL RECORD: [id number] LOCATION:[facility] ADMISSION DATE: 01/31/17 PROGRESS NOTE DATE OF SERVICE: 02/07/2017 SUBJECTIVESUBJECTIVE: The patient does not offer a new complaint. OBJECTIVE: The patient continues to show episodic combativeness in the afternoons. During the morning, he is better. Overall, moderate improvement. He is tolerating medication change well. On exam, mood is for the most part euthymic. Affect is very shallow. Speech is tangential. Content of thought is negative for overt psychosis at the moment. No change in sensorium. ASSESSMENT: No change in diagnosis. PLAN: 1. Continue all current medications. 2. Continue supportive therapy. TRANSINT:[id number] Voice Confirmation ID: [id number] DOCUMENT ID: [id number] IFEOMA RÍOS III, MD at 0628 CC: [id number] DICTATION DATE: 02/07/17 1108 ZOOGLER: 02/07/172058 ADM IN [place] [id number] [place] [id number]
[2017-02-08 08:30] VITALS: BP 119/78
--- NOTE | 2017-02-08 13:19 | NUR ---
LATE ENTRY FROM 02/07 SW MET WITH PT'S , MARY, TO DISCUSS DISCHARGE PLANS FOR PT TO TRANSFER TO [facility]. PT'S VOICED UNDERSTANDING OF DISCHARGE PROCESS.
--- NOTE | 2017-02-08 16:24 | NUR ---
B.) Received this am alert and oriented to self only. I.) Administer medications and monitor compliance. Redirect and reorient as need. Monitor for any suicidal ideations and safety. R.) Compliant with medications, dificulty at times with directions, mostly in the late afternoon, no aggression but is sluggish. No suicidal ideations assessed. No evidence of reorientation. Safety maintained. P. Continue plan of care and monitoring.
[2017-02-08 19:38] VITALS: BP 104/58
--- NOTE | 2017-02-08 22:00 | NUR ---
B) RECEIVED IN DAYROOM ALERT AND ORIENTED TO SELF ONLY. CALM AND COOPERATIVE WITH ASSESSMENT AND CARE. I) ADMINISTER PRESCRIBED MEDICATIONS. REDIRECT AND REORIENT NEEDED. MONITOR FOR SAFETY AND ANY SUICIDAL IDEATIONS. VSS. R) COMPLIANT WITH TAKING MEDICATIONS. DIFFICULT AT TIMES WITH REDIRECTING. NO SUICIDAL IDEATIONS NOTED. SAFETY MAINTAINED. P) CONTINUE CURRENT POC.
[2017-02-09 10:36] VITALS: BP 113/69
--- NOTE | 2017-02-09 12:30 | NUR ---
B) PATIENT IS VERY LETHARGIC TODAY, NOT ABLE TO GET HIM TO OPEN HIS EYES. DID HOLD HIS AM MEDS, HE WAS TALKING AND HE ATE A FEW BITES OF BREAKFAST, BUT OTHER THAN THAT HE SLEPT. PHYSICAL THERAPY WAS NOT ABLE TO GET HIM TO AMBULATE TODAY. PATIENT VERY CONFUSED, HE KNOWS HIS NAME, BUT NOT WHERE HE IS LOCATED OR TIME. I) PROVIDE PRESCRIBED MEDS AND REDIRECT TO REALITY NEEDED. R) PATIENT CAN STAND UP WITH ASSIST, BUT HE DID STAND UP BY HIMSELF ONE TIME TODAY. R) PATIENT IS COMPLIANT WITH MEDS AND UNIT MILIEU. P) CONTINUE PLAN OF CARE.
[2017-02-09 19:30] VITALS: BP 126/77
--- NOTE | 2017-02-09 21:30 | NUR ---
B) RECEIVED IN DAYROOM SITTING IN RECLINER RESTING WITH EYES CLOSED. AROUSES EASILY TO VERBAL STIMULI. BECAME TEARFUL AND SAID HIS BACK WAS HURTING. REPOSITIONED FOR COMFORT. CALM AND COOPERATIVE WITH ASSESSMENT. I) ADMINISTER PRESCRIBED MEDS. VSS. REINFORCE FALL SAETY. R) MEDICATION COMPLIANT. P) CONTINUE PLAN OF CARE.
[2017-02-10 07:00] VITALS: BP 104/62
--- NOTE | 2017-02-10 15:51 | NUR ---
RECEIVED TIHS AM IN BED.TRANSFERED TO RECLINER PER 2.IS ORIENTED TO SELF ONLY.COMPLIANT WITH MEDS AND STAFF.WILL CONTINUE WITH PLAN OF CARE,MONITOR FOR CHANGES AND SAFETY.REQUIRES TOTAL CARE.MUST BE FED PER STAFF,APPETITE GOOD.
[2017-02-10 19:34] VITALS: BP 133/106
--- NOTE | 2017-02-11 00:51 | NUR ---
B) Recieved sitting in a gerichair in the day room, alert and oriented to self, withdrawn with no interaction with other patients or staff, I) Administered perscribed medications, redirected as needed, R) Medication compliant, difficult to redirect due to him not processing information, P) Contionue plan of care.
[2017-02-11 09:10] VITALS: BP 116/50
--- NOTE | 2017-02-11 10:30 | NUR ---
B.) Alert and oriented to self only. Calm and cooperative with care. I.) Administer medications and monitor compliance. Redirect and reorient as need. Monitor safety. R.) Compliant with medication, good behavior control with no aggression, patient has not made any suicidal ideation. No eveidence of reorientation. Fed meals, consumes 100%. Safety maintained. P.) Continue with plan for discharge today.
--- NOTE | 2017-02-11 10:54 | PN ---
PATIENT:CLAUDIA DOMINGUEZ MEDICAL RECORD: [id number] LOCATION:[facility] ADMISSION DATE: 01/31/17 PROGRESS NOTE DATE OF SERVICE: 02/08/2017 SUBJECTIVE: No new complaint. OBJECTIVE: Staff report the patient has been more drowsy during the day. No further combativeness noted. He has been fairly cooperative overall. On exam, mood is euthymic. Affect is bland. Speech is low in volume, and also rather terse. Content of thought is negative for overt psychosis. Sensorium is unchanged. ASSESSMENT: No change in diagnoses. PLAN: 1. Change Zyprexa to 2.5 mg at bedtime only. 2. Maintain other meds. 3. Continue supportive therapy. TRANSINT:[id number] Voice Confirmation ID: [id number] DOCUMENT ID: [id number] IFEOMA RÍOS III, MD at 1054 CC: [id number] DICTATION DATE: 02/08/17 1231 ASSEMBLER UNIT: 02/08/17 2042 ADM IN [place] [address] [place] [address]
[2017-02-11] MEDS ORDERED: ZYPREXA2.5 MG PO (11:20)
[2017-02-11] MEDS ORDERED: LEXAPRO10 MG PO (11:20)
--- NOTE | 2017-02-11 16:14 | NUR ---
Discharged to [facility] via their transportation. Patient witout any incident.
--- NOTE | 2017-02-12 11:40 | DS ---
PATIENT:CLAUDIA DOMINGUEZ :44 MEDICAL RECORD: [id number] DISCHARGE SUMMARY ADMISSION DATE: 01/31/17 DISCHARGE DATE: 02/11/17 DATE OF ADMISSION: 01/31/2017. DATE OF DISCHARGE: 02/11/2017. HISTORY OF PRESENT ILLNESS: Second recent Residential admission for this 76-year-old white male. The patient is a resident of a local [facility]. He had again begun showing behavioral disturbance. In particular, he had been making suicidal statements. He had been admitted for similar reasons in December of this year. He had previously shown delusional ideation. However, this was not evident on this particular occasion. However, because of the threat of harm to self and worsening depression, he was admitted. For further details, please see previously dictated history. COURSE IN THE HOSPITAL: The patient was followed medically by Dr. Zhong. Comorbidities included Parkinson disease, hypertension, type 2 diabetes, osteoarthritis, diverticulosis, hyperlipidemia, and vitamin D deficiency. The patient was managed conservatively in terms of his medications. He was placed on Lexapro 10 mg daily for his depressive symptoms. He was changed from Seroquel to Zyprexa 2.5 mg at bedtime with good results. He was maintained on Aricept 10 mg daily. Aside from this, he was kept on previous doses of acetaminophen, Sinemet, Colace, Comtan, insulin, Atrovent, lactobacillus, vitamin D supplements, Glucophage, and vitamin C supplements. The patient did well over the course of hospitalization and he was felt to be stable at the time of discharge. FINAL DIAGNOSES: AXIS I: Alzheimer dementia with psychotic features -- improving. AXIS II: No diagnosis. AXIS III: Parkinson disease, type 2 diabetes, hyperlipidemia. AXIS IV: Moderate. AXIS V: 40. PLAN: 1. The patient is discharged on current medication. 2. Diet and activities as tolerated. 3. Follow up through [facility] physician. TRANSINT:[id number] Voice Confirmation ID: [id number] DOCUMENT ID: [id number] IFEOMA RÍOS III, MD at 1140 CC: [id number] DICTATION DATE: 02/11/17 1137 INDUSTRIAL RENDERER: 02/12/17 0229 DIS IN 02/11/17 [place] [address] [place] [address]
== END 2017-02-11 16:15 | DRG 57 ==
LOC: D.PSYCH 09:22
PROVIDERS: ADMIT Psychiatry & Neurology Psychiatry
DX: G30.9 Alzheimer's disease, unspecified (principal); R45.851 Suicidal ideations; F02.80 Dementia in other diseases classified elsewhere, unspecified severity, without behavioral disturbance, psychotic disturbance, mood disturbance, and anxiety; G20 Parkinson's disease; E11.9 Type 2 diabetes mellitus without complications; E78.5 Hyperlipidemia, unspecified; I10 Essential (primary) hypertension; K57.90 Diverticulosis of intestine, part unspecified, without perforation or abscess without bleeding; R26.81 Unsteadiness on feet; Z91.81 History of falling; R32 Unspecified urinary incontinence; E55.9 Vitamin D deficiency, unspecified; F41.9 Anxiety disorder, unspecified

== ENCOUNTER 2017-04-20 14:27 | Inpatient (IN) | payer MEDICARE ==
[~2017-04-20] VITALS: Ht 175.3 cm; Wt 86.2 kg
[~2017-04-20 14:27] MED LIST changes: +ACETAMINOPHEN325 MG PO; +ATIVAN0.5 MG PO; +LEXAPRO10 MG PO; +ZYPREXA2.5 MG PO
[2017-04-20 15:15] LABS: BASOPHILS 0.3 % (0-2); EOSINOPHILS 1.6 % (0-7); HEMATOCRIT 44.9 % (42.0-54.0); HEMOGLOBIN 15.2 g/dL (13.5-17.5); IMMATURE GRANULOCYTES 0.1 % (0-5); LYMPHOCYTES 21.9 % (15-50); MCH 31.2 pg (26.0-34.0); MCHC 33.9 g/dL (31.0-37.0); MCV 92.2 fL (80.0-100.0); MEAN PLATELET VOLUME 10.9 fL (7.4-10.4); MONOCYTES 7.6 % (2-11); NEUTROPHILS 68.5 % (40-80); PLATELET COUNT 216 10x3/uL (130-400); RBC 4.87 10x6/uL (4.20-6.10); RDW 13.7 % (11.5-14.5)
[2017-04-20 15:37] LABS: ALBUMIN 3.4 g/dL (3.4-5.0); ALKALINE PHOSPHATASE 75 U/L (46-116); ALT (SGPT) 46 U/L (10-68); CALC OSMOLALITY 283 mosm/kg (275-300); CALCIUM 9.3 mg/dL (8.5-10.1); CARBON DIOXIDE 28.1 mmol/L (21.0-32.0); CHLORIDE - SERUM 103 mmol/L (98-107); CREATININE - SERUM 0.9 mg/dL (0.6-1.3); GLUCOSE 150 mg/dL (74-106); POTASSIUM - SERUM 3.9 mmol/L (3.5-5.1); SODIUM 140 mmol/L (136-145); UREA NITROGEN 18 mg/dL (7-18); eGFR NON AFRICAN AMERICAN 88 mL/min (90-120)
[2017-04-20 15:39] LABS: APPEARANCE CLEAR (CLEAR); BILIRUBIN NEGATIVE (NEGATIVE); COLOR DK YELLOW (YELLOW); GLUCOSE 100 mg/dL (NEGATIVE); KETONE NEGATIVE (NEGATIVE); LEUKOCYTE ESTERASE NEGATIVE (NEGATIVE); NITRITE NEGATIVE (NEGATIVE); PROTEIN NEGATIVE (NEGATIVE); UROBILINOGEN NORMAL (NORMAL)
[2017-04-20 15:40] LABS: CREATINE KINASE 78 UL (21-232); TROPONIN-I < 0.017 ng/mL (0.000-0.060)
[2017-04-20 15:41] LABS: BACTERIA FEW /hpf (NONE SEEN); CALCIUM OXALATE CRYSTALS 0-5 /hpf (NONE SEEN); EPITHELIAL CELLS 0-5 /hpf (0-5); UDS - AMPHET NEGATIVE QUAL (NEGATIVE); UDS - BARB NEGATIVE QUAL (NEGATIVE); UDS - BENZO NEGATIVE QUAL (NEGATIVE); UDS - COCAINE NEGATIVE QUAL (NEGATIVE); UDS - METH NEGATIVE QUAL (NEGATIVE); UDS - OPIATE NEGATIVE QUAL (NEGATIVE); UDS - PCP NEGATIVE QUAL (NEGATIVE); UDS - THC NEGATIVE QUAL (NEGATIVE); WHITE CELLS - URINE 0-5 /hpf (0-5)
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
[2017-04-20 17:59] VITALS: BP 103/67; BMI 29.8
[2017-04-20] MEDS ORDERED: LIPITOR10 MG PO (18:56)
[2017-04-20] MEDS ORDERED: K-DUR20 MEQ PO (18:58)
[2017-04-20] MEDS ORDERED: CELEXA20 MG PO (19:07)
[2017-04-20 19:22] LABS: HEMOGLOBIN A1C 7.4 % (4.8-6.0)
[2017-04-20 19:30] VITALS: BP 126/68
[2017-04-20 19:31] LABS: CHOL - HDL RATIO 3.1 ratio (2.3-4.9); LDL-HDL RATIO 1.3 ratio (1.5-3.5); THYROID STIMULATING HORMONE 2.32 uIU/mL (0.36-3.74)
--- NOTE | 2017-04-21 02:42 | NUR ---
B) Recieved patient in the day room, alert and oreinted to self, calm and cooperative with care and assessment, I) Monitored for falls and safety, no medications this shift, R) resting now quietly, P) Continue plan of care.
[2017-04-21 08:57] VITALS: BP 134/81
--- NOTE | 2017-04-21 16:00 | NUR ---
Patient in dining room, during morning medication, said he would take his medication if it was poison. He was crying and said his didn't love him. Patient was encouraged to talk about his feelings. He was crying but didn't say anything else. He was non-compliant with medication. Patient ate 100 percent for breakfast and lunch. Continue to monitor
[2017-04-21 19:30] VITALS: BP 115/79
--- NOTE | 2017-04-21 22:05 | NUR ---
B) Recieved patient in the day room in a gerichair, alert and oriented to self, calm and cooperative with care, I) Administered perscribed medications, monitored for falls and safety, redirected as needed, R) Medication compliant, resting now quietly in bed, P) Continue plan of care.
[2017-04-22 07:00] VITALS: BP 103/69
--- NOTE | 2017-04-22 11:31 | NUR ---
Patient in dayroom in wheelchair. Compliant with medication. Patient assisted with self hygiene. [place] alarm on. Patient oriented to self only. Patient reoriented. Calm, looking around the room. Continue to monitor
[2017-04-22 11:35] VITALS: Ht 175.3 cm; Wt 86.2 kg
--- NOTE | 2017-04-22 18:11 | NUR ---
Patient in dayroom in wheelchair, leaning to right, consistently repositioned. Feet and leg swollen, patient put in recliner to keep legs up also put on eddie mat. He is leaning back straight, feet up, wagner alarm on. continue to monitor.
--- NOTE | 2017-04-22 19:40 | NUR ---
RECEIVED IN HALLWAY SITTING OUTSIDE OF NURSES STATION IN RECLINER. ATTEMPTS TO STAND WITHOUT ASSIST. NO SOCIALIZING. REDIRECT AND REORIENT NEEDED. CONTINUES TO SIT IN RECLINER. CONTINUE PLAN OF CARE
[2017-04-22 19:42] VITALS: BP 137/78
[2017-04-23 07:00] VITALS: BP 96/55
--- NOTE | 2017-04-23 14:21 | PSY ---
PATIENT NAME:CLAUDIA DOMINGUEZ MEDICAL RECORD: [id number] : 44 LOCATION:[facility] ADMISSION DATE: 04/20/17 ACCOUNT: [id number] PSYCHIATRIC EVALUATION DATE OF EVALUATION: 04/22/17 Psychiatric Evaluation IDENTIFYING DATA: The patient is 76 years old and he is admitted to the hospital on a voluntary basis. CHIEF COMPLAINT: Suicidal statements. HISTORY OF PRESENT ILLNESS: The patient lives in a local [facility]. Apparently, he was having some problems with his fingers swelling and the nursing staff removed his wedding ring and he decided that this meant that his had him and became very agitated. He could not have this explained to him, he could not be calmed, he made threats towards the staff and threatened to kill himself in a very agitated manner. It was delusional enough to where the staff at the [facility] felt he was in acute danger and they referred him to us for stabilization. PAST MEDICAL HISTORY: Significant for diabetes and Parkinson disease. PAST PSYCHIATRIC HISTORY: Significant for 3 psychiatric hospitalizations in the past 6 months all for similar behaviors where he becomes suicidal, aggressive and threatening. FAMILY HISTORY: Negative for psychiatric disease. ALLERGIES: No known drug allergies. CURRENT MEDICATIONS: Includes Celexa, Zyprexa, Atrovent, Aricept, Lipitor, Glucophage, Colace, Sinemet and a variety of vitamins and minerals. SOCIAL HISTORY: The patient is . He has adult children. His current is significantly younger than him; she does not have any children with him. MENTAL STATUS EXAMINATION: The patient is awake, alert and oriented to person only. His mood is flat. His affect is constricted. Thought processes are circumstantial. Memory, concentration and abstraction abilities are moderately impaired and he denies that he would seek to harm himself or others as well as current psychotic symptoms. ASSETS: Supportive family members. LIABILITIES: Limited insight. DIAGNOSTIC IMPRESSION: AXIS I: Senile dementia of the Alzheimer's type with behavioral disturbances. AXIS II: None. AXIS III: Diabetes, Parkinson disease. AXIS IV: Moderate stressors. AXIS V: Global assessment of functioning is 30. PLAN: At this time, the patient is admitted to the hospital secondary to agitated and threatening behavior at the [facility]. He will be treated with both memory-enhancing and mood-stabilizing medications. His long-term prognosis is guarded. TRANSINT:[id number] Voice Confirmation ID: [id number] DOCUMENT ID: [id number] GARLAND SPRAGUE MD at 1421 CC: [id number] DICTATION DATE: 04/22/17 1006 SHEET ROCK TAPER: 04/22/17 1048 ADM IN [facility] [address] [place] [address]
--- NOTE | 2017-04-23 16:50 | NUR ---
Patient in dayroom, oriented to self only, patient reoriented. Patient has been calm, pleasant and cooperative with medication. Due to swelling in lower legs, he has been placed in a recliner, wagner alarm activated. No suicidal ideations. Contract made with nurse to not self-harm. No hallucinations at this time. Continue to monitor
--- NOTE | 2017-04-23 19:13 | NUR ---
RECEIVED IN DAYROOM. SITTING IN RECLINING CHAIR WITH EYES OPEN. CALM AND COOPERATIVE WITH CARE AND ASSESSMENTS. NO SIGNS OF AGGRESSION. REDIRECT AND REORIENT NEEDED. CONTINUES TO SIT QUIETLY. CONTINUE PLAN OF CARE
[2017-04-23 19:42] VITALS: BP 140/85
[2017-04-24 08:00] VITALS: BP 124/67
[2017-04-24 08:23] LABS: FOLATE (FOLIC ACID) - SERUM 16.9 ng/mL (>3.0)
--- NOTE | 2017-04-24 13:01 | PN ---
PATIENT:CLAUDIA DOMINGUEZ MEDICAL RECORD: [id number] [facility] ADMISSION DATE: 04/20/17 PROGRESS NOTE DATE OF SERVICE: 04/23/2017 SUBJECTIVE: The patient's case was discussed with staff. He has no new complaint. OBJECTIVE: The patient denies intent to harm himself or others. He generally tolerates his medicines well. ASSESSMENT: No change in diagnosis. PLAN: Current medicines have been reviewed. I am going to discontinue the Celexa and we will start him on a different antidepressant. TRANSINT:[id number] Voice Confirmation ID: [id number] DOCUMENT ID: [id number] GARLAND SPRAGUE MD at 1301 CC: [id number] DICTATION DATE: 04/23/17 1434 RAIL SPLITTER: 04/23/17 2231 ADM IN [place] [address] [place] [address]
--- NOTE | 2017-04-24 16:00 | NUR ---
Alert and oriented to name only, in good behavior control with no suicidial ideations. compliant with medications. No evidence of reorientation. Safety maintained. Continue with plan of care.
[2017-04-24 19:50] VITALS: BP 135/80
--- NOTE | 2017-04-25 00:36 | NUR ---
B) Recieved sleeping in a jean chair in the day room, arrouses to name, oriented to name only, calm and quiet, I) Administered perscribed medications crushed in apple sauce, monitored for safety and falls, R) Medication compliant, resting now quietly, P) Continue plan of care.
[2017-04-25 08:00] VITALS: BP 150/71
--- NOTE | 2017-04-25 10:30 | NUR ---
B) PATIENT IS AWAKE AND ALERT, HE IS CONFUSED. HE KNOWS HIS NAME ONLY. HE IS ABLE TO AMBULATE WITH STAFF AND A WALKER. I) PROVIDE PRESCRIBED MEDS. R) PATIENT IS COMPLIANT WITH MEDS. P) CONTINUE PLAN OF CARE.
--- NOTE | 2017-04-25 15:59 | PN ---
PATIENT:CLAUDIA DOMINGUEZ MEDICAL RECORD: [id number] LOCATION:[facility] ADMISSION DATE: 04/20/17 PROGRESS NOTE DATE OF SERVICE: 04/24/2017 SUBJECTIVE: The patient's case was discussed with staff. He has no new complaint. OBJECTIVE: The patient is in good behavioral control. He has no active thoughts of harming himself or others. He is severely impaired cognitively. ASSESSMENT: No change in diagnoses. PLAN: The patient's current medications have been reviewed and will be maintained. I am going to start him on a low dose of Effexor. His long-term prognosis is guarded. TRANSINT:[id number] Voice Confirmation ID: [id number] DOCUMENT ID: [id number] GARLAND SPRAGUE MD at 1559 CC: [id number] DICTATION DATE: 04/24/17 1306 NEGOTIATOR SALES: 04/24/17 1936 ADM IN [facility] [address] [place] [address]
[2017-04-25 19:05] VITALS: BP 135/74
--- NOTE | 2017-04-25 23:17 | NUR ---
B) Recieved patient in the day room alert and oreinted to self, watching TV, keeping to himself, no behaviors noted, I) Administered perscribed medication crushed in applesauce, monitored for falls and safety, R) Medication compliant, resting now quietly.P) Continue plan of care.
[2017-04-26 08:00] VITALS: BP 113/73
--- NOTE | 2017-04-26 11:02 | NUR ---
Nutrition Follow Up: Chart reviewed. Pt is eating 74% meal avg on a diabetic mech soft diet with nectar thick liquids. Wt stable. No BM since admit. Labs reviewed - Glucose continues elevated. Meds noted including Metformin. Rec continue current diet. RD will continue to monitor pt progress.
[2017-04-26 19:30] VITALS: BP 115/72
--- NOTE | 2017-04-26 22:21 | PN ---
PATIENT:CLAUDIA DOMINGUEZ MEDICAL RECORD: [id number] LOCATION:[facility] ADMISSION DATE: 04/20/17 PROGRESS NOTE DATE OF SERVICE: 04/26/2017 SUBJECTIVE: No new complaint. OBJECTIVE: The patient has been doing reasonably well at the present time. Discharge is pending, awaiting Sherman assessment. On exam, mood is euthymic. Affect is reserved. Speech is terse. Content of thought is negative for overt psychosis. Sensorium shows no change. ASSESSMENT: No change in diagnosis. PLAN: 1. Continue all current medications. 2. Continue supportive therapy. TRANSINT:[id number] Voice Confirmation ID: [id number] DOCUMENT ID: [id number] IFEOMA RÍOS III, MD at 2221 CC: [id number] DICTATION DATE: 04/26/17 1150 GAS SYSTEM OPERATOR: 04/26/17 2049 ADM IN [place] [id number] [place] [id number]
[2017-04-27 09:59] VITALS: BP 111/61
--- NOTE | 2017-04-27 13:00 | NUR ---
ALERT AND ORIENTED TO NAME AND PLACE. PLEASANT AND IS SMILING. NO SUICIDIAL IDEATIONS. SITS QUIETLY AND IS COOPERATIVE WITH CARE. SAFETY MAINTAINED. CONTINUE PLAN OF CARE.
[2017-04-27 19:30] VITALS: BP 150/61
--- NOTE | 2017-04-27 21:30 | NUR ---
CALM AND COOPERATIVE WITH CARE AND ASSESSMENT. SEE ASSESSMENT FLOW SHEET FOR DETAILS. CONTINUE PLAN OF CARE.
--- NOTE | 2017-04-28 06:48 | PN ---
PATIENT:CLAUDIA DOMINGUEZ MEDICAL RECORD: [id number] LOCATION:[facility] ADMISSION DATE: 04/20/17 PROGRESS NOTE DATE OF SERVICE: 04/27/2017 SUBJECTIVE: No new complaint. OBJECTIVE: The patient is tolerating medications well. No behavioral problems have been noted. The patient just occasionally ____. On exam, mood is euthymic. Affect very constricted. Speech is terse. Content of thought is negative for overt psychosis. Sensorium shows no change. ASSESSMENT: No change in diagnosis. PLAN: 1. Continue current medications. 2. Continue supportive therapy. TRANSINT:[id number] Voice Confirmation ID: [id number] DOCUMENT ID: [id number] IFEOMA RÍOS III, MD at 0648 CC: [id number] DICTATION DATE: 04/27/17 1502 CARE PROCESS MANAGER: 04/27/17 2138 ADM IN [facility] [address] [place] [address]
[2017-04-28 07:00] VITALS: BP 113/71
--- NOTE | 2017-04-28 17:59 | NUR ---
Patient in dayroom, oriented to self. He has been compliant with medication. Pleasant and cooperative. He has been hallucinating, picking at things that aren't there. Continue to monitor, continue plan of care.
[2017-04-28 19:30] VITALS: BP 120/74
--- NOTE | 2017-04-28 21:49 | NUR ---
RECEIVED IN DAYRROM. LAYING IN RECLINER AT TABLE WITH EYES OPEN. SOCIAL AT TIMES. CALM AND COOPERATIVE WITH CARE AND ASSESSMENTS. DENIES THOUGHTS OF SELF HARM. ENCOURAGE TO EXPRESS NEEDS. TRANSFERE TO BED AT THIS TIME. CONTINUE PLAN OF CARE
--- NOTE | 2017-04-29 06:50 | NUR ---
LATE ENTRY FROM 04/25/2017 SW MET WITH PT'S DURING FAMILY EDUCATION GROUP TO DISCUSS RECENT ACTIVITIES PT PARTICIPATED IN, DISEASE PROGRESSION, AND DISCHARGE PLANNING. PT'S , HESHAM, VERBALIZED UNDERSTANDING AND THANKED TRINY FOR SERVICES.
[2017-04-29 07:00] VITALS: BP 104/79
--- NOTE | 2017-04-29 13:05 | PN ---
PATIENT:CLAUDIA DOMINGUEZ MEDICAL RECORD: [id number] LOCATION:[facility] ADMISSION DATE: 04/20/17 PROGRESS NOTE DATE OF SERVICE: 04/25/2017 SUBJECTIVE: The patient's case was discussed with staff. He has no new complaint. OBJECTIVE: The patient is in good behavioral control with limited insight about his condition. He has been sleeping and eating reasonably well. ASSESSMENT: No change in diagnoses. PLAN: Current medicines have been reviewed and will be maintained. I am going to increase the dose of the patient's antidepressant significantly. His long-term prognosis is guarded. TRANSINT:[id number] Voice Confirmation ID: [id number] DOCUMENT ID: [id number] GARLAND SPRAGUE MD at 1305 CC: [id number] DICTATION DATE: 04/25/17 1621 PAINT SUPERVISOR: 04/25/17 2228 ADM IN [place] [id number] [place] [id number]
[2017-04-29] MEDS ORDERED: EFFEXOR50 MG PO (14:16)
--- NOTE | 2017-04-29 14:23 | NUR ---
B.) Alert and oriented to name. Calm and smiling. I.) Administer medications and monitor compliance. Monitor for any suicidial ideations and abnormal behavior. Encourage group participation. Monitor safety. R.) Compliant with medications. Patient does try to feed himself but requires assistance. Smiles and is cooperative with care and group activities. No suicidial ideations. Safety maintained. P.) Continue plan of care.
--- NOTE | 2017-04-29 14:40 | NUR ---
SW CONTACTED PT'S TO DISCUSS DISCHARGE PLANS FOR TOMORROW TO RETURN TO [facility]. NO ANSWER LEFT VM TO CONTACT UNIT IF SHE HAS ANY FURTHER QUESTIONS ABOUT DISCHARGE TOMORROW.
--- NOTE | 2017-04-29 15:36 | NUR ---
Contacted patient spouse Neena Dayday, informed her of patient discharge back to [facility] on tomorrow at 0900. Verbalized understanding.
--- NOTE | 2017-04-29 16:23 | NUR ---
patient discharge paperwork faxed to [facility] in anticipation of his discharge on tomorrow morning. Conformation of faxed received per Diann Humphreys.
--- NOTE | 2017-04-29 19:42 | NUR ---
RECEIVED IN HALLWAY. SITTING IN RECLINING CHAIR OUTSIDE OF NURSES STATION. CALM AND COOPERATIVE WITH CARE AND ASSESSMENTS. DENIES THOUGHTS OF SELF HARM. ENCOURAGE TO EXPRESS NEEDS. REMAINS IN RECLINER SITTING QUIETLY. CONTINUE PLAN OF CARE
[2017-04-29 20:02] VITALS: BP 154/93
[2017-04-30 07:45] VITALS: BP 118/74
--- NOTE | 2017-04-30 07:45 | NUR ---
Alert and oriented to name only. Calm and cooperative with care. No suicidial ideations. Smiles and is pleasant. Discharging this am back to [facility].
--- NOTE | 2017-04-30 08:25 | NUR ---
[facility] here to transport patient back to [facility]. Discharged with no incident. Spouse was notified yesterday of discharge today.
--- NOTE | 2017-04-30 14:09 | PN ---
PATIENT:CLAUDIA DOMINGUEZ MEDICAL RECORD: [id number] LOCATION:[facility] ADMISSION DATE: 04/20/17 PROGRESS NOTE DATE OF SERVICE: 04/29/2017 SUBJECTIVE: The patient's case was discussed with staff. He had no new complaint. OBJECTIVE: The patient is severely impaired cognitively. He has little insight or understanding of his situation. ASSESSMENT: No change in diagnoses. PLAN: The patient denies that he would seek to harm himself or others today. I am going to increase his Effexor to 50 mg twice daily. His long-term prognosis is guarded. TRANSINT:[id number] Voice Confirmation ID: [id number] DOCUMENT ID: [id number] GARLAND SPRAGUE MD at 1409 CC: [id number] DICTATION DATE: 04/29/17 1347 ASSOCIATE FINANCIAL ADVISOR: 04/29/17 2132 DIS IN 04/30/17 [facility] [address] [place] [address]
--- NOTE | 2017-05-01 12:41 | PN ---
PATIENT:CLAUDIA DOMINGUEZ MEDICAL RECORD: [id number] LOCATION:[facility] ADMISSION DATE: 04/20/17 PROGRESS NOTE DATE OF SERVICE: 04/30/2017 SUBJECTIVE: The patient's case was discussed with staff. He has no new complaint. OBJECTIVE: The patient denies that he would seek to harm himself or others. He is significantly and seriously impaired cognitively. ASSESSMENT: No change in diagnoses. PLAN: The patient will be transitioned out of the hospital today. His long-term prognosis is guarded. Followup will be with his primary care physician. TRANSINT:[id number] Voice Confirmation ID: [id number] DOCUMENT ID: [id number] GARLAND SPRAGUE MD at 1241 CC: [id number] DICTATION DATE: 04/30/17 1422 METHODS EXAMINER: 04/30/17 1619 DIS IN 04/30/17 [facility] [address] [place] [address]
== END 2017-04-30 08:25 | DRG 57 ==
LOC: D.ER 14:27 → D.PSYCH 16:56
PROVIDERS: Emergency Medicine; ADMIT Psychiatry & Neurology Psychiatry
DX: G30.1 Alzheimer's disease with late onset (principal); F02.81 Dementia in other diseases classified elsewhere, unspecified severity, with behavioral disturbance; R45.851 Suicidal ideations; F41.8 Other specified anxiety disorders; G20 Parkinson's disease; I10 Essential (primary) hypertension; E11.9 Type 2 diabetes mellitus without complications; E78.5 Hyperlipidemia, unspecified; R26.89 Other abnormalities of gait and mobility; M19.90 Unspecified osteoarthritis, unspecified site; E55.9 Vitamin D deficiency, unspecified